=== PATIENT | male | born 1935 | race Caucasian/White ===

== ENCOUNTER 2016-08-26 12:30 | Emergency (ER) | payer MEDICARE ==
[~2016-08-26] VITALS: Ht 177.8 cm; Wt 82.2 kg
[~2016-08-26 12:30] MED LIST changes: -WARF4TAB7 PO
[2016-08-26] MEDS ORDERED: SODIUM CHLORIDE 0.9% 1,000 ML IV ONE (13:16)
[2016-08-26] MEDS ORDERED: FAMOTIDINE 20 MG/2 ML ONE (13:22)
[2016-08-26] MEDS ORDERED: SODIUM CHLORIDE FLUSH 10ML SYR IVF ONE (13:30)
[2016-08-26] MEDS ORDERED: FAMOTIDINE 20 MG/2 ML IVP ONE (13:30)
[2016-08-26 14:15] LABS: ASPARTATE AMINO TRANSFERASE 18 U/L (15-37); BLOOD UREA NITROGEN 17 mg/dL (7-18)
[2016-08-26] MEDS ORDERED: WARF4TAB7 PO (14:16)
[2016-08-26 17:13] VITALS: BP 140/82
== END 2016-08-26 17:15 | disposition home or self-care (01) ==
LOC: ED 15:17
DX: G89.29 Other chronic pain (principal); R10.84 Generalized abdominal pain; K92.1 Melena; I48.91 Unspecified atrial fibrillation; I10 Essential (primary) hypertension
CPT/HCPCS: 36415; 74176; 80053; 81001; 83690; 85025; 85610; 86850; 86900; 99285

== ENCOUNTER → 2016-08-26 | Outpatient (CLI) | payer MEDICARE ==
[~2016-08-26] MED LIST: FOLI-17 PO; HYDR12.53 PO; LISI2.5T PO; MAGN400T26 PO; METO25TA35 PO; MULT-658 PO; THIA100T10 PO; WARF1TAB PO; WARF4TAB7 PO
== END | disposition home or self-care (01) ==
LOC: LAB 09:48
PROVIDERS: ATTEND Internal Medicine Geriatric Medicine
DX: I48.91 Unspecified atrial fibrillation (principal)
CPT/HCPCS: 36415; 85610

== ENCOUNTER → 2016-10-26 | Outpatient (CLI) | payer MEDICARE ==
[~2016-10-26] MED LIST changes: +WARF4TAB7 PO
== END | disposition home or self-care (01) ==
LOC: LAB 10:17
PROVIDERS: ATTEND Internal Medicine Geriatric Medicine
DX: I48.91 Unspecified atrial fibrillation (principal)
CPT/HCPCS: 36415; 85610

== ENCOUNTER → 2017-01-26 | Outpatient (CLI) | payer MEDICARE | END | disposition home or self-care (01) | LOC: LAB 10:37 | PROVIDERS: ATTEND Internal Medicine Geriatric Medicine | DX: I48.91 Unspecified atrial fibrillation (principal) | CPT/HCPCS: 36415; 85610 ==

== ENCOUNTER 2017-04-20 10:04 | Emergency (ER) | payer MEDICARE ==
[~2017-04-20] VITALS: Ht 180.3 cm; Wt 78.6 kg
[~2017-04-20 10:04] MED LIST changes: +CEFD300C37 PO; +TAMS-11 PO
[2017-04-20 11:46] VITALS: BP 119/79
== END 2017-04-20 11:55 | disposition home or self-care (01) ==
LOC: ED 11:54
DX: R33.9 Retention of urine, unspecified (principal); I10 Essential (primary) hypertension
CPT/HCPCS: 99283

== ENCOUNTER → 2017-11-27 | Outpatient (CLI) | payer MEDICARE ==
[~2017-11-27] MED LIST changes: +WARF4TAB65 PO; -WARF4TAB7 PO
[2017-11-27 11:44] LABS: INTERNATIONAL NORMALIZED RATIO 3.02 (0.93-1.1); PROTHROMBIN TIME 30.7 Seconds (9.6-11.5)
== END | disposition home or self-care (01) ==
LOC: LAB 11:13
PROVIDERS: ATTEND Internal Medicine Geriatric Medicine
DX: I48.91 Unspecified atrial fibrillation (principal)
CPT/HCPCS: 36415; 85610